=== PATIENT | male | born 1995 | race Caucasian/White ===

== ENCOUNTER 2017-05-26 14:50 | Emergency (ER) | payer BC ==
[2017-05-26] MEDS ORDERED: Ketorolac 10 MG Tab PO ONE (14:51)
[2017-05-26 14:55] VITALS: BP 148/70
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
[2017-05-26] MEDS ORDERED: Take Home: Ketorolac 10 MG Tab, 4 Tab Pack PO ONE (15:31)
== END 2017-05-26 15:37 | disposition home or self-care (01) ==
LOC: CC.ED 14:50
DX: S66.912A Strain of unspecified muscle, fascia and tendon at wrist and hand level, left hand, initial encounter (principal); F17.210 Nicotine dependence, cigarettes, uncomplicated; W01.10XA Fall on same level from slipping, tripping and stumbling with subsequent striking against unspecified object, initial encounter
CPT/HCPCS: 73110; 99283; A9270